=== PATIENT | female | born 1935 | race Caucasian/White ===

== ENCOUNTER 2018-02-04 08:35 | Inpatient (IN) | payer MEDICARE ==
[~2018-02-04] VITALS: Ht 152.4 cm; Wt 56.0 kg
[2018-02-04] VITALS (18 sets, daily range): BP systolic 140–196; BP diastolic 53–88; PULSE 64–150; RESP 15–20; TEMP 97–99.1; O2SAT 94–98
[2018-02-04] MEDS ORDERED: BERB1TAB PO (09:04)
[2018-02-04] MEDS ORDERED: [UNRECOGNIZED DRUG - OTHER] (09:04)
[2018-02-04] MEDS ORDERED: OMEGCAP PO (09:04)
[2018-02-04] MEDS ORDERED: ACETAMINOPHEN 500 MG CPLT PO ONE (09:15)
[2018-02-04] MEDS ORDERED: METOPROLOL TARTRATE 5 MG/5 ML VIAL IV PUSH ONE ×2 (09:15→11:15)
[2018-02-04 09:24] LABS: AUTOMATED NEUTROPHIL # 8.5 TH/MM3 (1.8-7.7); BASOPHIL % 0.5 % (0.0-2.0); EOSINOPHIL % 0.1 % (0.0-4.0); HEMATOCRIT 44.6 % (35.0-46.0); HEMOGLOBIN 14.9 GM/DL (11.6-15.3); LYMPH % 8.4 % (9.0-44.0); LYMPHOCYTE # 0.9 TH/MM3 (1.0-4.8); MEAN CELL VOLUME 89.9 FL (80.0-100.0); MEAN CORPUSCULAR HGB CONC 33.3 % (32.0-36.0); MONO % 7.6 % (0.0-8.0); MONOCYTE # 0.8 TH/MM3 (0-0.9); NEUT % 83.4 % (16.0-70.0); PLATELET COUNT 233 TH/MM3 (150-450); RED BLOOD COUNT 4.96 MIL/MM3 (4.00-5.30); RED CELL DISTRIBUTION WIDTH 13.2 % (11.6-17.2); WHITE BLOOD COUNT 10.2 TH/MM3 (4.0-11.0)
--- NOTE | 2018-02-04 09:50 | PD ---
HPI Chief Complaint: Fall Time Seen by Provider: 08:53 Travel History International Travel<30 days: No Contact w/Intl Traveler<30days: No Traveled to known affect area: No History of Present Illness HPI This is an 83-year-old female who presents to the emergency department having had a slip and fall on a wet floor reporting left hip and left low back pain, constant, moderate severity, worse with walking, improved with rest. She did not hit her head at that time. She denies any chest pain or trouble breathing and the reason she came is that the pain was keeping her up last night. She denies any numbness or weakness and denies any loss of bowels or bladder. PFSH Past Medical History Diabetes: Yes (type 2) Patient Takes Glucophage: No Past Surgical History Hysterectomy: Yes Mastectomy: Yes (left, and lumpectomy) Social History Alcohol Use: No Tobacco Use: No Substance Use: No Allergies-Medications (Allergen,Severity, Reaction): Coded Allergies: No Known Allergies (Unverified , 02/04/18) Reported Meds & Prescriptions Reported Meds & Active Scripts Active Reported D3 Super Strength (Cholecalciferol) 2,000 Unit Cap 2,000 Units PO DAILY [place]-3 Fish Oil/Vitamin (Fish Oil-Cholecalciferol) 1,000-1,000 Mg Cap 1 Cap PO DAILY Ostera (Berberine-Reduced Iso Alpha AC) 1 Tab 1 Tab PO DAILY Review of Systems Except as stated in HPI: all other systems reviewed are Neg Physical Exam Narrative GENERAL:Well appearing, no acute distress SKIN: Focused skin assessment warm and dry. HEAD: Atraumatic. Normocephalic. EYES: Pupils equal and round. No injection or drainage. ENT: Moist mucous membranes NECK: Trachea midline. CARDIOVASCULAR: Regular rate and rhythm. No murmur appreciated. RESPIRATORY: Clear to auscultation. Breath sounds equal bilaterally. GASTROINTESTINAL: Abdomen soft, non-tender, nondistended. MUSCULOSKELETAL: Tender to palpation over the lower lumbar spine, pain with flexion of the left hip NEUROLOGICAL: Awake and alert. No obvious cranial nerve deficits. 5 out of 5 strength in the bilateral lower extremities. PSYCHIATRIC: Appropriate mood and affect; insight and judgment normal. Data Data Last Documented VS Vital Signs Date Time Temp Pulse Resp B/P (MAP) Pulse Ox O2 Delivery O2 Flow Rate FiO2 02/04/18 12:00 72 16 196/81 (119) 98 Nasal Cannula 2.00 02/04/18 08:40 99.1 Orders Orders Complete Blood Count With Diff (02/04/18 09:05) Comprehensive Metabolic Panel (02/04/18 09:05) ^ Insert Iv (02/04/18 09:05) Electrocardiogram (02/04/18 ) Chest, Single Ap (02/04/18 ) Hip, Uni(Ap&Lat) W Ap Pelvis (02/04/18 ) Spine, Lumbar - Ltd (Ap & Lat) (02/04/18 ) Acetaminophen (Tylenol) (02/04/18 09:15) Metoprolol Tartrate Inj (Lopressor Inj) (02/04/18 09:15) Lactic Acid (02/04/18 10:10) Beta Hydroxybutyrate (Acetone) (02/04/18 10:10) Arterial Blood Gas (Abg) (02/04/18 ) Metoprolol Tartrate Inj (Lopressor Inj) (02/04/18 11:15) Sodium Chlorid 0.9% 500 Ml Inj (Ns 500 M (02/04/18 11:15) Insulin Human Regular Inj (Novolin R Inj (02/04/18 11:15) Metoprolol Tartrate (Lopressor) (02/04/18 12:00) Admit Order (Ed Use Only) (02/04/18 12:06) Labs Laboratory Tests Test 02/04/18 09:00 02/04/18 10:20 02/04/18 10:25 White Blood Count 10.2 TH/MM3 Red Blood Count 4.96 MIL/MM3 Hemoglobin 14.9 GM/DL Hematocrit 44.6 % Mean Corpuscular Volume 89.9 FL Mean Corpuscular Hemoglobin 30.0 PG Mean Corpuscular Hemoglobin Concent 33.3 % Red Cell Distribution Width 13.2 % Platelet Count 233 TH/MM3 Mean Platelet Volume 9.0 FL Neutrophils (%) (Auto) 83.4 % Lymphocytes (%) (Auto) 8.4 % Monocytes (%) (Auto) 7.6 % Eosinophils (%) (Auto) 0.1 % Basophils (%) (Auto) 0.5 % Neutrophils # (Auto) 8.5 TH/MM3 Lymphocytes # (Auto) 0.9 TH/MM3 Monocytes # (Auto) 0.8 TH/MM3 Eosinophils # (Auto) 0.0 TH/MM3 Basophils # (Auto) 0.0 TH/MM3 CBC Comment DIFF FINAL Differential Comment Blood Urea Nitrogen 24 MG/DL Creatinine 1.36 MG/DL Random Glucose 607 MG/DL Total Protein 8.6 GM/DL Albumin 3.9 GM/DL Calcium Level 9.3 MG/DL Alkaline Phosphatase 89 U/L Aspartate Amino Transf (AST/SGOT) 20 U/L Alanine Aminotransferase (ALT/SGPT) 21 U/L Total Bilirubin 1.1 MG/DL Sodium Level 131 MEQ/L Potassium Level 4.3 MEQ/L Chloride Level 93 MEQ/L Carbon Dioxide Level 19.8 MEQ/L Anion Gap 18 MEQ/L Estimat Glomerular Filtration Rate 37 ML/MIN Blood Gas Puncture Site RT RADIAL Blood Gas Patient Temperature 98.6 Blood Gas HCO3 23 mmol/L Blood Gas Base Excess -0.3 mmol/L Blood Gas Oxygen Saturation 95 % Arterial Blood pH 7.43 Arterial Blood Partial Pressure CO2 36 mmHg Arterial Blood Partial Pressure O2 89 mmHG Arterial Blood Oxygen Content 19.5 Vol % Arterial Blood Carboxyhemoglobin 1.2 % Arterial Blood Methemoglobin 0.6 % Blood Gas Hemoglobin 14.6 G/DL Oxygen Delivery Device NASAL CANNULA Blood Gas Liter Flow 2 L/M Lactic Acid Level 1.9 mmol/L B-Hydroxybutyrate 0.98 MMOL/L MDM Medical Decision Making Medical Screen Exam Complete: Yes Emergency Medical Condition: Yes Interpretation(s) Afebrile, tachycardic, hypertensive No leukocytosis Radiology renal insufficiency Hyperglycemia Lactic acid is 1.9 PH is 7.43 Beta hydroxybutyrate is mildly elevated Last 24 hours Impressions Lumbar Spine X-Ray 02/04/18 0000 Signed Impressions: Service Date/Time: January 10:07 - CONCLUSION: 1. Compression fracture to the superior plate of L1 appears chronic. 2. Otherwise, vertebral body heights are maintained. Multilevel degenerative disc disease with marginal spurring most prominent at L4-5. Minimal grade 1 anterolisthesis of L4 on 5. Jameel Campbell MD Hip and Pelvis X-Ray 02/04/18 0000 Signed Impressions: Service Date/Time: January 10:08 - CONCLUSION: No fracture. Jameel Campbell MD Chest X-Ray 02/04/18 0000 Signed Impressions: Service Date/Time: January 10:12 - CONCLUSION: Mild left apical capping. Otherwise, no acute cardiopulmonary process. Jameel Campbell MD Differential Diagnosis Compression fracture, pelvic fracture, hip sprain, contusion, herniated disc Narrative Course This is an 83-year-old female who presents to the emergency department having had a fall reporting back pain and left-sided hip pain for 3 days. She was placed on a monitor on arrival and an IV was established. She was incidentally found to be in atrial fibrillation with rapid ventricular response. She denies any chest pain or shortness of breath and has no history of atrial fibrillation. Labs were obtained which demonstrate hyperglycemia and an anion gap with a low bicarb. ABG was reassuring with a normal pH. Beta hydroxybutyrate is mildly elevated and lactic acid is normal. Patient was given 5 units of IV insulin and gentle IV hydration. She was given IV metoprolol for her atrial fibrillation. X-ray demonstrates a compression fracture which given the clinical setting I suspect is acute. Patient will be admitted for pain control and management of her comorbid conditions. Critical Care Narrative Aggregate critical care time was 40 minutes. Time to perform other separately billable procedures was not included in the critical care time. My time did not include minutes spent treating any other patients simultaneously or on activities that did not directly contribute to the patient's treatment. The services I provided to this patient were to treat and/or prevent clinically significant deterioration that could result in: Disability, I provided critical care services requiring my management, as noted below: Chart data review, documentation time, medication orders and management, vital sign assessments/reviewing monitor data, ordering and reviewing lab tests, ordering and interpreting/reviewing x-rays and diagnostic studies, care of the patient and discussion of the patient with the admitting physicians. Physician Communication Physician Communication Discussed with Dr. Ochoa Diagnosis Primary Impression: Compression fracture Additional Impressions: Atrial fibrillation with rapid ventricular response Hyperglycemia Admitting Information Admitting Physician Requests: Admit Tabatha Rodríguez MD February 04, 2018 09:50
[2018-02-04 09:52] LABS: ALBUMIN 3.9 GM/DL (3.4-5.0); ALKALINE PHOSPHATASE 89 U/L (45-117); ALT (GPT) 21 U/L (10-53); AST (GOT) 20 U/L (15-37); BICARBONATE 19.8 MEQ/L (21.0-32.0); BLOOD UREA NITROGEN 24 MG/DL (7-18); CALCIUM 9.3 MG/DL (8.5-10.1); CHLORIDE 93 MEQ/L (98-107); CREATININE 1.36 MG/DL (0.50-1.00); GLOMERULAR FILTRATION RATE 37 ML/MIN (>89); SODIUM (NA) 131 MEQ/L (136-145); TOTAL BILIRUBIN ADULT 1.1 MG/DL (0.2-1.0); TOTAL PROTEIN 8.6 GM/DL (6.4-8.2)
[2018-02-04 09:58] LABS: GLUCOSE,RANDOM 607 MG/DL (74-106)
--- NOTE | 2018-02-04 10:40 | RADRPT ---
EXAM DATE/TIME: 02/04/2018 10:07 [facility] COMPARISON: No previous studies available for comparison. INDICATIONS : Left lower back pain. Post Fall MEDICAL HISTORY : None. SURGICAL HISTORY : None. ENCOUNTER: Initial ACUITY: 4 - 6 days PAIN SCORE: 8/10 LOCATION: Left Lspine FINDINGS: Two view examination was performed. There are five non-rib bearing vertebral bodies. Multilevel dege nerative disc disease with some marginal spurring most prominent at L4-5. Minimal grade 1 anterolisth esis of L4 on 5. Compression fracture of the superior endplate of L1 appears chronic. Vertebral body heights are otherwise maintained. Dense atherosclerotic calcification of the regional vasculature. CONCLUSION: 1. Compression fracture to the superior plate of L1 appears chronic. 2. Otherwise, vertebral body heights are maintained. Multilevel degenerative disc disease with margin al spurring most prominent at L4-5. Minimal grade 1 anterolisthesis of L4 on 5. Jameel Campbell MD on February 04, 2018 at 10:29 Board Certified Radiologist. This report was verified electronically.
--- NOTE | 2018-02-04 10:41 | RADRPT ---
EXAM DATE/TIME: 02/04/2018 10:08 [facility] COMPARISON: No previous studies available for comparison. INDICATIONS : Left hip pain, post fall MEDICAL HISTORY : None. SURGICAL HISTORY : None. ENCOUNTER: Initial ACUITY: 4 - 6 days PAIN SCORE: 7/10 LOCATION: Left Hip FINDINGS: Examination of the left hip was performed with AP Pelvis. The primary and secondary trabecular patte rn of the femoral neck is intact. The hip joint is of normal width without significant sclerosis or bony hypertrophy. The acetabulum is grossly intact. CONCLUSION: No fracture. Jameel Campbell MD on February 04, 2018 at 10:39 Board Certified Radiologist. This report was verified electronically.
--- NOTE | 2018-02-04 10:43 | RADRPT ---
EXAM DATE/TIME: 02/04/2018 10:12 [facility] COMPARISON: No previous studies available for comparison. INDICATIONS : Fall, patient complains of left sided pain MEDICAL HISTORY : None. SURGICAL HISTORY : None. ENCOUNTER: Initial ACUITY: 4 - 6 days PAIN SCORE: 8/10 LOCATION: Left chest FINDINGS: A single view of the chest demonstrates the lungs to be symmetrically aerated without evidence of mas s, infiltrate or effusion. Minimal apical capping on the left. Atherosclerotic calcification of the aortic arch. The cardiomediastinal contours are unremarkable. Osseous structures are intact. Some lo ss of the acromiohumeral interval on the right may represent chronic rotator cuff injury. CONCLUSION: Mild left apical capping. Otherwise, no acute cardiopulmonary process. Jameel Campbell MD on February 04, 2018 at 10:40 Board Certified Radiologist. This report was verified electronically.
[2018-02-04] MEDS ORDERED: INSULIN HUMAN REGULAR 1,000 UNITS/10 ML VIAL IV PUSH ONE (11:15)
[2018-02-04] MEDS ORDERED: SODIUM CHLORID 0.9% 500 ML INJ 500 ML IV ONE (11:15)
[2018-02-04] MEDS ORDERED: METOPROLOL TARTRATE 50 MG TAB PO ONE (12:00)
[2018-02-04] MEDS ORDERED: ACETAMINOPHEN 325 MG TAB PO PRN (13:15)
[2018-02-04] MEDS ORDERED: ONDANSETRON ODT 4 MG TAB PO PRN (13:15)
--- NOTE | 2018-02-04 14:27 | PD.PN.STU ---
Subjective Remarks PCP - Dr. Jolly Ms. Suzanne Villagomez is a pleasant 83yo female, with newly discovered A. Fib. , presents to ER for Left hip and back pain after a fall 4 days ago. She reports that she slipped on a wet spot while doing house work. Denies feeling dizzy, lightheaded, or palpitations before the fall. She fell onto her left side but did not hit her head or lose consciousness. She was unable to get up so her helped her. She tried a variety of "natural remedies" for the pain without relief. The pain occurs in her left hip and radiates across her lower back. The pain is exacerbated by lying on either of her sides or when she tries to walk. Pain improves with rest. She has a HX DM but does not take prescribed medications for it. She has a hx of peripheral neuropathy. She is independent with all of her activites of daily living. HEENT - DENIES room spinning, ear ringing, vision changes CV - DENIES palpitations, syncope, chest pain, sweating, leg swelling PULM - DENIES SOB, wheezing NEURO - DENIES slurred speech, facial drooping, muscle weakness PMH DM Thyroid disease - not sure if hyper/hypo Hx Breast CA 1989 PSH Left breast mastectomy 1989 Complete hysterectomy 1977 "tumor but not cancer" SH - denies ETOH, tobacco use, or illicit drugs. Lives with . 3 children who live in other states. Allergies -NKDA FH noncontributory Objective Vitals Vital Signs Date Time Temp Pulse Resp B/P (MAP) Pulse Ox O2 Delivery O2 Flow Rate FiO2 02/04/18 13:00 74 16 181/71 (107) 97 Nasal Cannula 2.00 02/04/18 12:00 72 16 196/81 (119) 98 Nasal Cannula 2.00 02/04/18 11:24 120 16 146/86 (106) 97 Nasal Cannula 2.00 02/04/18 09:44 130 96 Room Air 02/04/18 08:56 150 16 140/88 (105) 96 Nasal Cannula 2.00 02/04/18 08:51 161 17 93 Room Air 02/04/18 08:40 99.1 142 20 147/68 (94) 94 Result Diagram: 02/04/18 0900 02/04/18 0900 Other Results Laboratory Tests Test 02/04/18 09:00 02/04/18 10:20 02/04/18 10:25 White Blood Count 10.2 TH/MM3 Red Blood Count 4.96 MIL/MM3 Hemoglobin 14.9 GM/DL Hematocrit 44.6 % Mean Corpuscular Volume 89.9 FL Mean Corpuscular Hemoglobin 30.0 PG Mean Corpuscular Hemoglobin Concent 33.3 % Red Cell Distribution Width 13.2 % Platelet Count 233 TH/MM3 Mean Platelet Volume 9.0 FL Neutrophils (%) (Auto) 83.4 % Lymphocytes (%) (Auto) 8.4 % Monocytes (%) (Auto) 7.6 % Eosinophils (%) (Auto) 0.1 % Basophils (%) (Auto) 0.5 % Neutrophils # (Auto) 8.5 TH/MM3 Lymphocytes # (Auto) 0.9 TH/MM3 Monocytes # (Auto) 0.8 TH/MM3 Eosinophils # (Auto) 0.0 TH/MM3 Basophils # (Auto) 0.0 TH/MM3 CBC Comment DIFF FINAL Differential Comment Blood Urea Nitrogen 24 MG/DL Creatinine 1.36 MG/DL Random Glucose 607 MG/DL Total Protein 8.6 GM/DL Albumin 3.9 GM/DL Calcium Level 9.3 MG/DL Alkaline Phosphatase 89 U/L Aspartate Amino Transf (AST/SGOT) 20 U/L Alanine Aminotransferase (ALT/SGPT) 21 U/L Total Bilirubin 1.1 MG/DL Sodium Level 131 MEQ/L Potassium Level 4.3 MEQ/L Chloride Level 93 MEQ/L Carbon Dioxide Level 19.8 MEQ/L Anion Gap 18 MEQ/L Estimat Glomerular Filtration Rate 37 ML/MIN Blood Gas Puncture Site RT RADIAL Blood Gas Patient Temperature 98.6 Blood Gas HCO3 23 mmol/L Blood Gas Base Excess -0.3 mmol/L Blood Gas Oxygen Saturation 95 % Arterial Blood pH 7.43 Arterial Blood Partial Pressure CO2 36 mmHg Arterial Blood Partial Pressure O2 89 mmHG Arterial Blood Oxygen Content 19.5 Vol % Arterial Blood Carboxyhemoglobin 1.2 % Arterial Blood Methemoglobin 0.6 % Blood Gas Hemoglobin 14.6 G/DL Oxygen Delivery Device NASAL CANNULA Blood Gas Liter Flow 2 L/M Lactic Acid Level 1.9 mmol/L B-Hydroxybutyrate 0.98 MMOL/L Imaging Last Impressions Lumbar Spine X-Ray 02/04/18 0000 Signed Impressions: Service Date/Time: January 10:07 - CONCLUSION: 1. Compression fracture to the superior plate of L1 appears chronic. 2. Otherwise, vertebral body heights are maintained. Multilevel degenerative disc disease with marginal spurring most prominent at L4-5. Minimal grade 1 anterolisthesis of L4 on 5. Jameel Campbell MD Hip and Pelvis X-Ray 02/04/18 0000 Signed Impressions: Service Date/Time: January 10:08 - CONCLUSION: No fracture. Jameel Campbell MD Chest X-Ray 02/04/18 0000 Signed Impressions: Service Date/Time: January 10:12 - CONCLUSION: Mild left apical capping. Otherwise, no acute cardiopulmonary process. Jameel Campbell MD Objective Remarks Well developed, well appearing thin female in NAD, appears stated age Skin - intact, no signs of lesions or infection. No bruising. HEENT - eye movements intact, pupils equal and reactive to light. No erythema throat. Torus palatinus. Good dentition CV - Regular rate and rhythm. No murmurs, rubs or gallops. No JVD. No lower extremity edema. Pulm - clear equal breath sounds. No wheezing ABD - no pain with palpation MSK - No swelling or bruising of left hip area. Some pain with palpation. Patient able to flex hip while lying in bed. Hip abduction +adduction 5/5 strength. plantar and dorsiflexion 5/5.Upper extremity muscle strength 5/5. Neuro - No focal deficits. CN intact. No facial drooping or slurred speech. Sensation intact bilateral feel. Psych - patient oriented x3. Cooperative. Medications and IVs Current Medications Medications (Trade) Dose Ordered Sig/Abril Route PRN Reason Start Time Stop Time Status Last Admin Dose Admin Insulin Aspart (NovoLOG SUPPLEMENTAL SCALE) 1 ACHS SLIDING SCALE SQ 02/04/18 17:00 Acetaminophen (Tylenol) 650 mg Q4H PRN PO fever or pain 02/04/18 13:15 Ondansetron HCl (Zofran Odt) 4 mg Q6H PRN PO nausea 02/04/18 13:15 A/P Assessment and Plan Hip Pain New Onset A fib DM - uncontrolled Admit MRI Hip + spine Diltiazem or metroprolol for rate control. Telemetry Insulin + fluids to bring down glucose. BMP in the morning + A1C Pain meds PRN DVT prophylaxis Heart healthy diet Stop O2? [place] February 04, 2018 14:27
--- NOTE | 2018-02-04 14:27 | HHI.HP ---
HPI Service CP Hospitalists Primary Care Physician Shane Jolly MD Admission Diagnosis atrial fibrillation with rvr, back pain hyperglycemia Chief Complaint: back pain Travel History International Travel<30 Days: No Contact w/Intl Traveler <30 Da: No Traveled to Known Affected Are: No History of Present Illness Pt is 83 yo with untreated htn,dm,hypothyroidism,and breast ca who presents with peristent left flank/back pain after slip and fall 4 days ago. She is having trouble transitioning in/out of bed and ambulating. On arrival she is found to have bg over 600 and afib/rvr. no hx afib but she has resisted treatment of any of her medical conditions for many yrs. ED gave iv cardizem and metoprolol. Lumbar xray suggested old compression deformities lumbar spine. Review of Systems Other low back pain/flank pain after fall Past Family Social History Past Medical History untreated dm2. hgba1c 10.7 untreated htn hypothyroidism breast ca s/p mod rad mastectomy/chemo vitamin d def iron def anemia. colon polyps raegan Reported Medications D3 Super Strength (Cholecalciferol) 2,000 Unit Cap 2,000 Units PO DAILY [place]-3 Fish Oil/Vitamin (Fish Oil-Cholecalciferol) 1,000-1,000 Mg Cap 1 Cap PO DAILY Ostera (Berberine-Reduced Iso Alpha AC) 1 Tab 1 Tab PO DAILY Allergies: Coded Allergies: No Known Allergies (Unverified , 02/04/18) Family History nc Social History no etoh/tob Physical Exam Vital Signs heart reg lung cta abd s/nt ext no edema unable to get much tenderness to palpation over left flank/spine Vital Signs Date Time Temp Pulse Resp B/P (MAP) Pulse Ox O2 Delivery O2 Flow Rate FiO2 02/04/18 14:00 72 16 177/74 (108) 97 Nasal Cannula 2.00 02/04/18 13:00 74 16 181/71 (107) 97 Nasal Cannula 2.00 02/04/18 12:00 72 16 196/81 (119) 98 Nasal Cannula 2.00 02/04/18 11:24 120 16 146/86 (106) 97 Nasal Cannula 2.00 02/04/18 09:44 130 96 Room Air 02/04/18 08:56 150 16 140/88 (105) 96 Nasal Cannula 2.00 02/04/18 08:51 161 17 93 Room Air 02/04/18 08:40 99.1 142 20 147/68 (94) 94 Laboratory Laboratory Tests Test 02/04/18 09:00 02/04/18 10:20 02/04/18 10:25 White Blood Count 10.2 Red Blood Count 4.96 Hemoglobin 14.9 Hematocrit 44.6 Mean Corpuscular Volume 89.9 Mean Corpuscular Hemoglobin 30.0 Mean Corpuscular Hemoglobin Concent 33.3 Red Cell Distribution Width 13.2 Platelet Count 233 Mean Platelet Volume 9.0 Neutrophils (%) (Auto) 83.4 Lymphocytes (%) (Auto) 8.4 Monocytes (%) (Auto) 7.6 Eosinophils (%) (Auto) 0.1 Basophils (%) (Auto) 0.5 Neutrophils # (Auto) 8.5 Lymphocytes # (Auto) 0.9 Monocytes # (Auto) 0.8 Eosinophils # (Auto) 0.0 Basophils # (Auto) 0.0 CBC Comment DIFF FINAL Differential Comment Blood Urea Nitrogen 24 Creatinine 1.36 Random Glucose 607 Total Protein 8.6 Albumin 3.9 Calcium Level 9.3 Alkaline Phosphatase 89 Aspartate Amino Transf (AST/SGOT) 20 Alanine Aminotransferase (ALT/SGPT) 21 Total Bilirubin 1.1 Sodium Level 131 Potassium Level 4.3 Chloride Level 93 Carbon Dioxide Level 19.8 Anion Gap 18 Estimat Glomerular Filtration Rate 37 Blood Gas Puncture Site RT RADIAL Blood Gas Patient Temperature 98.6 Blood Gas HCO3 23 Blood Gas Base Excess -0.3 Blood Gas Oxygen Saturation 95 Arterial Blood pH 7.43 Arterial Blood Partial Pressure CO2 36 Arterial Blood Partial Pressure O2 89 Arterial Blood Oxygen Content 19.5 Arterial Blood Carboxyhemoglobin 1.2 Arterial Blood Methemoglobin 0.6 Blood Gas Hemoglobin 14.6 Oxygen Delivery Device NASAL CANNULA Blood Gas Liter Flow 2 Lactic Acid Level 1.9 B-Hydroxybutyrate 0.98 Result Diagram: 02/04/18 0900 02/04/18 0900 Caprini VTE Risk Assessment Caprini VTE Risk Assessment: Mod/High Risk (score >= 2) Caprini Risk Assessment Model Point Value = 1 Point Value = 2 Point Value = 3 Point Value = 5 Age 41-60 Minor surgery BMI > 25 kg/m2 Swollen legs Varicose veins or History of unexplained or recurrent spontaneous Oral contraceptives or hormone replacement Sepsis (< 1 month) Serious lung disease, including pneumonia (< 1 month) Abnormal pulmonary function Acute myocardial infarction Congestive heart failure (< 1 month) History of inflammatory bowel disease Medical patient at bed rest Age 61-74 Arthroscopic surgery Major open surgery (> 45 min) Laparoscopic surgery (> 45 min) Malignancy Confined to bed (> 72 hours) Immobilizing plaster cast Central venous access Age >= 75 History of VTE Family history of VTE Factor V Leiden Prothrombin [id number] Lupus anticoagulant Anticardiolipin antibodies Elevated serum homocysteine Heparin-induced thrombocytopenia Other congenital or acquired thrombophilia Stroke (< 1 month) Elective arthroplasty Hip, pelvis, or leg fracture Acute spinal cord injury (< 1 month) Prophylaxis Regimen Total Risk Factor Score Risk Level Prophylaxis Regimen 0-1 Low Early ambulation 2 Moderate Order ONE of the following: *Sequential Compression Device (SCD) *Heparin 5000 units SQ BID 3-4 Higher Order ONE of the following medications: *Heparin 5000 units SQ TID *Enoxaparin/Lovenox 40 mg SQ daily (WT < 150 kg, CrCl > 30 mL/min) *Enoxaparin/Lovenox 30 mg SQ daily (WT < 150 kg, CrCl > 10-29 mL/min) *Enoxaparin/Lovenox 30 mg SQ BID (WT < 150 kg, CrCl > 30 mL/min) AND/OR *Sequential Compression Device (SCD) 5 or more Highest Order ONE of the following medications: *Heparin 5000 units SQ TID (Preferred with Epidurals) *Enoxaparin/Lovenox 40 mg SQ daily (WT < 150 kg, CrCl > 30 mL/min) *Enoxaparin/Lovenox 30 mg SQ daily (WT < 150 kg, CrCl > 10-29 mL/min) *Enoxaparin/Lovenox 30 mg SQ BID (WT < 150 kg, CrCl > 30 mL/min) AND *Sequential Compression Device (SCD) Assessment and Plan Problem List: (1) Acute left-sided low back pain ICD Codes: M54.5 - Low back pain Status: Acute Plan: 1. acute left flank/LBP after fall could be soft tissue injury. r/o lumbar fx 2. new onset afib/rvr..converted to nsr 3. dm2. poor control. refuses rx. hgba1c 10.7 hyperglycemia on presentation over 600 4. emani/hyponatremia/dehydration felt related to severe hyperglycemia. increased AG probably very mild dka. 5. abnormal ekg...new afib with lat st depressions pt denies cp but likely has underlying cad 6. hx breast ca pt with long hx of refusing medication for her medical conditions. gentle ns, recheck bmp cont telemetry. pt agrees initiating low dose bb. titrate as needed add asa will monitor bg with ssi. consider starting oha if pt will agree CT L spine. non narcotic pain meds. Pt eval If stable try to d/c tomorrow (2) Dehydration ICD Codes: E86.0 - Dehydration Status: Acute (3) Hyponatremia ICD Codes: E87.1 - Hypo-osmolality and hyponatremia Status: Acute (4) EMANI (acute kidney injury) ICD Codes: N17.9 - Acute kidney failure, unspecified Status: Acute (5) Diabetes ICD Codes: E11.9 - Type 2 diabetes mellitus without complications Status: Acute (6) Fall ICD Codes: W19.XXXA - Unspecified fall, initial encounter Status: Acute Physician Certification Order for Inpatient Services The services are ordered in accordance with Medicare regulations or non- Medicare payer requirements, as applicable. In the case of services not specified as inpatient-only, they are appropriately provided as inpatient services in accordance with the 2-midnight benchmark. days is the estimated time the patient will need to remain in the hospital, assuming treatment plan goals are met and no additional complications. Reagan Ochoa MD February 04, 2018 14:27
[2018-02-04] MEDS ORDERED: D200CAP PO (14:45)
[2018-02-04] MEDS ORDERED: ACETAMINOPHEN 1000 MG/100 ML 100 ML IV ONE (15:45)
[2018-02-04] MEDS: SODIUM CHLOR 0.9% 1000 ML INJ 1,000 ML IV SCH (16:29)
[2018-02-04] MEDS: INSULIN ASPART SUPPLEMENTAL SCALE SQ SCH ×2 (17:00→22:58)
[2018-02-04] MEDS ORDERED: cloNIDine HCL 0.1 MG TAB PO PRN (19:00)
[2018-02-04] MEDS ORDERED: METOPROLOL TARTRATE 25 MG TAB PO SCH (21:00)
[2018-02-04] MEDS: ACETAMINOPHEN 1000 MG/100 ML 100 ML IV PRN (22:59)
--- NOTE | 2018-02-04 23:21 | RADRPT ---
EXAM DATE/TIME: 02/04/2018 22:20 [place] COMPARISON: SPINE LUMBAR LTD (AP & LAT), February 04, 2018, 10:07. INDICATIONS : Lower back pain RADIATION DOSE: 17.21 CTDIvol (mGy) MEDICAL HISTORY : Diabetes, breast cancer SURGICAL HISTORY : Hysterectomy. Mastectomy ENCOUNTER: Initial ACUITY: 1 day PAIN SCALE: 4/10 LOCATION: Bilateral Lumbar spine TECHNIQUE: Volumetric scanning of the lumbar spine was performed. Multiplanar reconstructions in the sagittal, coronal and oblique axial planes were performed. Using automated exposure control and adjustment of the mA and/or kV according to patient size, radiation dose was kept as low as reasonably achievable t o obtain optimal diagnostic quality images. DICOM format image data is available electronically for review and comparison. FINDINGS: VERTEBRAE: There is fracture at the superior aspect of L1 with collapse of the anterior and mid portions of the L1 vertebral body with loss of approximately 25% of the original height in these regions. There is mi nimal buckling of the posterior superior L1 cortex causing minimal impress on the anterior aspect of thecal sac. The remaining lumbar vertebral bodies are normal in height. There is sclerosis at the rig ht lateral L2-L3 level. Anterior marginal osteophytes are seen throughout being most prominent at the L4-L5 level. ALIGNMENT: No evidence of subluxation. T12-L1: Again there is a fracture deformity of the superior aspect of L1. There is minimal posterior buckling of the posterior superior cortex in the order of 2 mm causing a minimal impression on the anterior a spect of thecal sac. Significant stenosis is not seen. The disc space appears grossly intact. There i s a vacuum phenomenon seen at the anterior aspect of the disc. The thecal sac has a normal diameter. No evidence of disc bulge or protrusion. The neural foramina are patent bilaterally. L1-L2: The thecal sac has a normal diameter. No evidence of disc bulge or protrusion. The neural foramina are patent bilaterally. L2-L3: The disc demonstrates decreased height being asymmetric and worse on the right. There is a vacuum can not. There is mild disc bulging. The thecal sac has a normal diameter. The neural foramina are paten t bilaterally. L3-L4: There is mild diffuse disc bulge causing mild impression on the thecal sac. The thecal sac has a norm al diameter. The neural foramina are patent bilaterally. L4-L5: There is mild diffuse disc bulge causing mild impression on the thecal sac. The thecal sac has a norm al diameter. The neural foramina are patent bilaterally. There is mild facet hypertrophy. L5-S1: The thecal sac has a normal diameter. No evidence of disc bulge or protrusion. The neural foramina are patent bilaterally. There is mild to moderate facet hypertrophy. CONCLUSION: 1. Acute fracture deformity of the superior aspect of the L1 vertebral body. There is minimal posteri or buckling and displacement of the posterior superior cortex in the order of 2 mm causing a minimal impression on the anterior thecal sac. 2. Disc bulges at the L2-L3 through L4-L5 levels. Yonatan Madrid MD on February 04, 2018 at 23:11 Board Certified Radiologist. This report was verified electronically.
[2018-02-05] VITALS (18 sets, daily range): BP systolic 102–178; BP diastolic 52–72; PULSE 58–75; RESP 16–20; TEMP 97.4–98.5; O2SAT 92–99
[2018-02-05] MEDS: SODIUM CHLOR 0.9% 1000 ML INJ 1,000 ML IV SCH (05:05)
[2018-02-05 07:49] LABS: BICARBONATE 27.1 MEQ/L (21.0-32.0); CALCIUM 8.8 MG/DL (8.5-10.1); CREATININE 0.85 MG/DL (0.50-1.00); MAGNESIUM 2.4 MG/DL (1.5-2.5); PHOSPHORUS 2.7 MG/DL (2.5-4.9)
--- NOTE | 2018-02-05 08:07 | HHI.PR ---
Subjective Remarks ofirmev helps pain hasn't been oob doesn't want any nsg eval or surgical intervention on L1 fx Objective Vitals heart lung cta abd s/nt ext no edema Vital Signs Date Time Temp Pulse Resp B/P (MAP) Pulse Ox O2 Delivery O2 Flow Rate FiO2 02/05/18 06:00 58 02/05/18 05:00 58 02/05/18 04:00 63 02/05/18 04:00 60 02/05/18 04:00 64 16 142/62 (88) 93 02/05/18 03:00 60 02/05/18 02:00 62 02/05/18 01:00 64 02/05/18 00:00 62 02/05/18 00:00 64 02/05/18 00:00 16 02/04/18 23:00 68 02/04/18 22:00 64 02/04/18 21:15 69 02/04/18 21:15 98.9 67 18 155/53 (87) 94 02/04/18 21:00 68 02/04/18 20:00 68 02/04/18 19:00 74 02/04/18 18:35 85 02/04/18 18:15 145/72 (96) 02/04/18 17:16 18 02/04/18 17:00 71 02/04/18 16:08 97.0 74 15 173/71 (105) 94 02/04/18 16:02 70 16 157/85 (109) Nasal Cannula 2.00 02/04/18 14:00 72 16 177/74 (108) 97 Nasal Cannula 2.00 02/04/18 13:00 74 16 181/71 (107) 97 Nasal Cannula 2.00 02/04/18 12:00 72 16 196/81 (119) 98 Nasal Cannula 2.00 02/04/18 11:24 120 16 146/86 (106) 97 Nasal Cannula 2.00 02/04/18 09:44 130 96 Room Air 02/04/18 08:56 150 16 140/88 (105) 96 Nasal Cannula 2.00 02/04/18 08:51 161 17 93 Room Air 02/04/18 08:40 99.1 142 20 147/68 (94) 94 Result Diagram: 02/04/18 0900 02/05/18 0553 A/P Problem List: (1) Acute left-sided low back pain ICD Codes: M54.5 - Low back pain Status: Acute Plan: 1. acute left flank/LBP after fall acute L1 fracture. no spinal stenosis 2. new onset afib/rvr..converted to nsr 3. dm2. poor control. refused rx. hgba1c 10.7 hyperglycemia on presentation over 600 4. emani/hyponatremia/dehydration felt related to severe hyperglycemia. increased AG probably very mild dka. All improving. 5. abnormal ekg...new afib with lat st depressions pt denies cp but likely has underlying cad 6. hx breast ca pt with long hx of refusing medication for her medical conditions. stop ivf cont telemetry. pt agrees initiating low dose bb. lower dose to avoid bradycardia cont asa will monitor bg with ssi. will initiate oha slowly as pt is hesitant to try ..this can be further titrated in outpt setting. non narcotic pain meds. Pt eval today and tlso brace ordered. Pt is requesting no neurosurgical intervention or eval at this time unless conservative management with pain meds/PT/brace are ineffective. I have warned her that it's possible that the fx can progress in some situations. (2) Dehydration ICD Codes: E86.0 - Dehydration Status: Acute (3) Hyponatremia ICD Codes: E87.1 - Hypo-osmolality and hyponatremia Status: Acute (4) EMANI (acute kidney injury) ICD Codes: N17.9 - Acute kidney failure, unspecified Status: Acute (5) Diabetes ICD Codes: E11.9 - Type 2 diabetes mellitus without complications Status: Acute (6) Fall ICD Codes: W19.XXXA - Unspecified fall, initial encounter Status: Acute Reagan Ochoa MD February 05, 2018 08:06
[2018-02-05] MEDS ORDERED: PILL SPLITTER OTHER PRN (08:15)
[2018-02-05] MEDS: INSULIN ASPART SUPPLEMENTAL SCALE SQ SCH ×4 (08:18→21:00)
[2018-02-05] MEDS: ASPIRIN 325 MG TAB PO SCH (08:18)
[2018-02-05] MEDS: glipiZIDE 5 MG TAB PO SCH ×2 (08:22→18:10)
[2018-02-05] MEDS: METOPROLOL TARTRATE 25 MG TAB PO SCH ×2 (08:22→21:12)
[2018-02-05] MEDS: ACETAMINOPHEN 1000 MG/100 ML 100 ML IV PRN (09:09)
--- NOTE | 2018-02-05 09:15 | PD.PN.STU ---
Subjective Remarks Hospital Day 2 for L1 fracture after fall 5 days ago. Patient reports her pain is better today. She is only taking IV acetaminophen. She does not want surgery for her back. She slept well last night and did not experience any palpitations , heart racing, or episode of A. Fib. She is wearing a back brace. She needs help getting out of bed but is able to ambulate to the bathroom. Sensation remains intact in her legs and she has not had incontinence. Tolerating insulin. Blood sugar 247 this am. Objective Vitals Vital Signs Date Time Temp Pulse Resp B/P (MAP) Pulse Ox O2 Delivery O2 Flow Rate FiO2 02/05/18 06:00 58 02/05/18 05:00 58 02/05/18 04:00 63 02/05/18 04:00 60 02/05/18 04:00 64 16 142/62 (88) 93 02/05/18 03:00 60 02/05/18 02:00 62 02/05/18 01:00 64 02/05/18 00:00 62 02/05/18 00:00 64 02/05/18 00:00 16 02/04/18 23:00 68 02/04/18 22:00 64 02/04/18 21:15 69 02/04/18 21:15 98.9 67 18 155/53 (87) 94 02/04/18 21:00 68 02/04/18 20:00 68 02/04/18 19:00 74 02/04/18 18:35 85 02/04/18 18:15 145/72 (96) 02/04/18 17:16 18 02/04/18 17:00 71 02/04/18 16:08 97.0 74 15 173/71 (105) 94 02/04/18 16:02 70 16 157/85 (109) Nasal Cannula 2.00 02/04/18 14:00 72 16 177/74 (108) 97 Nasal Cannula 2.00 02/04/18 13:00 74 16 181/71 (107) 97 Nasal Cannula 2.00 02/04/18 12:00 72 16 196/81 (119) 98 Nasal Cannula 2.00 02/04/18 11:24 120 16 146/86 (106) 97 Nasal Cannula 2.00 02/04/18 09:44 130 96 Room Air I/O 02/04/18 02/04/18 02/04/18 02/05/18 02/05/18 02/05/18 07:00 15:00 23:00 07:00 15:00 23:00 Intake Total 240 ml 240 ml 240 ml Balance 240 ml 240 ml 240 ml Intake Oral 240 ml 240 ml IV Total 240 ml # Voids 2 2 Result Diagram: 02/04/18 0900 02/05/18 0553 Other Results Laboratory Tests Test 02/04/18 10:20 02/04/18 10:25 02/05/18 05:53 Blood Gas Puncture Site RT RADIAL Blood Gas Patient Temperature 98.6 Blood Gas HCO3 23 mmol/L Blood Gas Base Excess -0.3 mmol/L Blood Gas Oxygen Saturation 95 % Arterial Blood pH 7.43 Arterial Blood Partial Pressure CO2 36 mmHg Arterial Blood Partial Pressure O2 89 mmHG Arterial Blood Oxygen Content 19.5 Vol % Arterial Blood Carboxyhemoglobin 1.2 % Arterial Blood Methemoglobin 0.6 % Blood Gas Hemoglobin 14.6 G/DL Oxygen Delivery Device NASAL CANNULA Blood Gas Liter Flow 2 L/M Lactic Acid Level 1.9 mmol/L B-Hydroxybutyrate 0.98 MMOL/L Blood Urea Nitrogen 23 MG/DL Creatinine 0.85 MG/DL Random Glucose 202 MG/DL Calcium Level 8.8 MG/DL Phosphorus Level 2.7 MG/DL Magnesium Level 2.4 MG/DL Sodium Level 140 MEQ/L Potassium Level 3.9 MEQ/L Chloride Level 103 MEQ/L Carbon Dioxide Level 27.1 MEQ/L Anion Gap 10 MEQ/L Estimat Glomerular Filtration Rate 64 ML/MIN Imaging Last Impressions Lumbar Spine X-Ray 02/04/18 0000 Signed Impressions: Service Date/Time: January 10:07 - CONCLUSION: 1. Compression fracture to the superior plate of L1 appears chronic. 2. Otherwise, vertebral body heights are maintained. Multilevel degenerative disc disease with marginal spurring most prominent at L4-5. Minimal grade 1 anterolisthesis of L4 on 5. Jameel Campbell MD Lumbar Spine CT 02/04/18 0000 Signed Impressions: Service Date/Time: January 22:20 - CONCLUSION: 1. Acute fracture deformity of the superior aspect of the L1 vertebral body. There is minimal posterior buckling and displacement of the posterior superior cortex in the order of 2 mm causing a minimal impression on the anterior thecal sac. 2. Disc bulges at the L2-L3 through L4-L5 levels. Yonatan Madrid MD Hip and Pelvis X-Ray 02/04/18 0000 Signed Impressions: Service Date/Time: January 10:08 - CONCLUSION: No fracture. Jameel Campbell MD Chest X-Ray 02/04/18 0000 Signed Impressions: Service Date/Time: January 10:12 - CONCLUSION: Mild left apical capping. Otherwise, no acute cardiopulmonary process. Jameel Campbell MD Objective Remarks NAD, resting comfortably in back brace Heart regular rate and rhythm. No murmurs. No swelling of lower extremities Lung sounds equal. No wheezes or crackles. no use of accessory muscles No focal deficits on neuro exam. Sensation feet/legs intact. Medications and IVs Current Medications Medications (Trade) Dose Ordered Sig/Abril Route PRN Reason Start Time Stop Time Status Last Admin Dose Admin Insulin Aspart (NovoLOG SUPPLEMENTAL SCALE) 1 ACHS SLIDING SCALE SQ 02/04/18 17:00 02/05/18 08:18 Ondansetron HCl (Zofran Odt) 4 mg Q6H PRN PO nausea 02/04/18 13:15 Acetaminophen 100 ml @ 400 mls/hr Q6H PRN IV Pain 3-10 02/04/18 15:45 02/04/18 22:59 Clonidine (Catapres) 0.1 mg Q4H PRN PO SYSTOLIC BP GREATER THAN 170 02/04/18 19:00 02/05/18 08:21 Aspirin (Aspirin) 325 mg DAILY PO 02/05/18 09:00 02/05/18 08:18 Metoprolol Tartrate (Lopressor) 12.5 mg Q12HR PO 02/05/18 09:00 02/05/18 08:22 Glipizide (Glucotrol) 5 mg BID@08,17 PO 02/05/18 08:30 02/05/18 08:22 Miscellaneous (Pill Splitter) 1 ea UNSCH PRN OTHER SEE LABEL COMMENTS 02/05/18 08:15 A/P Assessment and Plan 1. L1 fracture 2. New onset A. Fib - converted 3. Acute Kidney Injury - possibly from dehydration, uncontrolled DM2 and HTN. 3. DM2 - uncontrolled 4. Hypertension -uncontrolled Transfer to Ortho floor Ortho Consult Continue metoprolol Clonidine when systolic > 170 Continue IV Tylenol for pain Add Glipizide PT Diabetic Diet Ewa Marie February 05, 2018 09:15
--- NOTE | 2018-02-05 11:46 | EKG ---
Date Performed: 02/04/2018 Time Performed: 08:55:37 PTAGE: 83 years EKG: ATRIAL FIBRILLATION WITH RAPID VENTRICULAR RESPONSE BORDERLINE LEFT AXIS DEVIATION VOLTAGE CRITERIA FOR LVH NONSPECIFIC ST & T-WAVE ABNORMALITY ABNORMAL ECG INTERPRETATION BASED ON A DEFAULT A GE OF 40 YEARS NO PREVIOUS TRACING DOCTOR: Venancio Lieberman Interpretating Date/Time 02/05/2018 11:43:54
[2018-02-06] VITALS: BP 160/70; PULSE 66; RESP 18; TEMP 97.4; O2SAT 99
[2018-02-06] MEDS: ACETAMINOPHEN 1000 MG/100 ML 100 ML IV PRN (01:38)
[2018-02-06 03:43] VITALS: PULSE 63
[2018-02-06 04:00] VITALS: BP 141/64; PULSE 64; RESP 16; TEMP 97.6; O2SAT 94
[2018-02-06 08:00] VITALS: BP 163/68; PULSE 72; PULSE 75; RESP 20; TEMP 97.9; O2SAT 97
[2018-02-06] MEDS: INSULIN ASPART SUPPLEMENTAL SCALE SQ SCH ×3 (08:00→16:22)
[2018-02-06] MEDS: ASPIRIN 325 MG TAB PO SCH (08:39)
[2018-02-06] MEDS: METOPROLOL TARTRATE 25 MG TAB PO SCH (08:39)
[2018-02-06] MEDS: glipiZIDE 5 MG TAB PO SCH ×2 (08:39→16:18)
--- NOTE | 2018-02-06 08:52 | HHI.PR ---
Subjective Remarks pt had brace on while trying to sleep..causing alot of pain. able to sit to edge of bed on her own. Objective Vitals heart reg lung cta abd s/nt ext no edema tlso brace. Vital Signs Date Time Temp Pulse Resp B/P (MAP) Pulse Ox O2 Delivery O2 Flow Rate FiO2 02/06/18 04:00 97.6 64 16 141/64 (89) 94 02/06/18 03:43 63 02/06/18 00:00 97.4 66 18 160/70 (100) 99 02/06/18 00:00 Room Air 02/05/18 23:45 62 02/05/18 20:00 98.3 70 18 136/61 (86) 95 02/05/18 20:00 Room Air 02/05/18 19:45 70 02/05/18 16:31 98.1 65 20 153/67 (95) 99 02/05/18 11:46 98.5 66 19 102/52 (69) 92 02/05/18 11:00 75 02/05/18 10:00 72 02/05/18 09:00 70 Result Diagram: 02/04/18 0900 02/05/18 0553 A/P Problem List: (1) Acute left-sided low back pain ICD Codes: M54.5 - Low back pain Status: Acute Plan: 1. acute left flank/LBP after fall acute L1 fracture. no spinal stenosis 2. new onset afib/rvr..converted to nsr 3. dm2. poor control. refused rx. hgba1c 10.7 hyperglycemia on presentation over 600 4. emani/hyponatremia/dehydration felt related to severe hyperglycemia. increased AG probably very mild dka. All improving. 5. abnormal ekg...new afib with lat st depressions pt denies cp but likely has underlying cad 6. hx breast ca pt with long hx of refusing medication for her medical conditions. stop ivf cont telemetry. pt agrees initiating low dose bb. lower dose to avoid bradycardia cont asa will monitor bg with ssi. will initiate oha slowly as pt is hesitant to try ..this can be further titrated in outpt setting. non narcotic pain meds. tlso brace Pt is requesting no neurosurgical intervention or eval at this time unless conservative management with pain meds/PT/brace are ineffective. I have warned her that it's possible that the fx can progress in some situations. will discuss with her family today.....will plan for d/c unless her family requesting nsg. ADDENDUM:Pt son here from [place]...he is now asking me to NSG evaluation before I discharge her. Will ask nsg for opinion regarding the L1 fx before d/c per family request. Of note pt does say her pain is getting better and improved ambulation. d/c if ok with nsg. (2) Dehydration ICD Codes: E86.0 - Dehydration Status: Acute (3) Hyponatremia ICD Codes: E87.1 - Hypo-osmolality and hyponatremia Status: Acute (4) EMANI (acute kidney injury) ICD Codes: N17.9 - Acute kidney failure, unspecified Status: Acute (5) Diabetes ICD Codes: E11.9 - Type 2 diabetes mellitus without complications Status: Acute (6) Fall ICD Codes: W19.XXXA - Unspecified fall, initial encounter Status: Acute Reagan Ochoa MD February 06, 2018 08:51
[2018-02-06 12:00] VITALS: BP 165/70; PULSE 70; PULSE 72; RESP 20; TEMP 97.5; O2SAT 96
[2018-02-06] MEDS ORDERED: TYLE325T PO (12:54)
[2018-02-06] MEDS ORDERED: GLIP5 PO (12:54)
[2018-02-06] MEDS ORDERED: METO25TA3 PO (12:54)
[2018-02-06] MEDS ORDERED: ASA325 PO (12:54)
--- NOTE | 2018-02-06 12:54 | HHI.DCPOC ---
Discharge Care Plan Diagnosis: (1) Compression fracture (2) Atrial fibrillation with rapid ventricular response (3) Diabetes (4) Dehydration (5) Hyponatremia (6) Fall (7) EMANI (acute kidney injury) Goals to Promote Your Health * To prevent worsening of your condition and complications * To maintain your health at the optimal level Directions to Meet Your Goals Take your medications as prescribed Follow your dietary instruction Follow activity as directed Keep your appointments as scheduled Take your immunizations and boosters as scheduled If your symptoms worsen call your PCP, if no PCP go to Urgent Care Center or Emergency Room Smoking is Dangerous to Your Health. Avoid second hand smoke Call the 24-hour hour crisis hotline for domestic abuse at Reagan Ochoa MD February 06, 2018 12:54
--- NOTE | 2018-02-06 13:17 | MB ---
cc: ,Blair Coles DATE: 02/06/2018 CHIEF COMPLAINT: Back pain. HISTORY OF PRESENT ILLNESS: This 83-year-old female patient with multiple medical problems, presented to the ER after a fall 4 days ago. She had progressive pain and had difficulty ambulating and getting out of bed. Because of this, she presented to the ER, where she underwent evaluation and a question of a L1 compression fracture was made and she was also found to have multiple medical problems which were untreated. Neurosurgery consult was placed because of the compression fracture. PAST MEDICAL HISTORY: Remarkable for untreated diabetes mellitus, untreated hypertension, hypothyroidism, status post breast cancer with mastectomy and chemotherapy, vitamin D deficiency, iron deficiency anemia, and colon polyps. MEDICATIONS: Includes: 1. D3. 2. [place] 3 fish oil. 3. Ostera. ALLERGIES: SHE HAS NO KNOWN ALLERGIES. FAMILY HISTORY: Not covered. SOCIAL HISTORY: Reveals she does not use alcohol or tobacco. PHYSICAL EXAMINATION: VITAL SIGNS: Blood pressure of 177/74, pulse of 72, respirations 16, pulse oximetry of 97, and temperature 99.1. GENERAL: Shows a well-developed, thin female in no acute distress. She is jovial. HEENT: Unremarkable. NECK: Supple with good carotid pulses bilaterally. CHEST: Symmetric. LUNGS: Clear. HEART: Shows regular rhythm with normal heart sounds. ABDOMEN: Soft and nontender. EXTREMITIES: Clear. MUSCULOSKELETAL: Examination of the back shows tenderness at the midline at about the level of L4-L5. IMAGING STUDIES: Review of a CT of the lumbar spine shows evidence of a compression fracture of L1. No instability noted. OVERALL IMPRESSION: L1 compression fracture. The patient reports a 70% improvement at the present time. She states that she is today ambulatory without much difficulty. She has worn a brace, which made her pain worse. RECOMMENDATIONS: At this time are to use the brace intermittently for comfort. She should have followup as an outpatient because of the L1 compression fracture. She should have a standing lumbar x-ray once she is ambulatory and doing well. No surgical intervention is necessary at the present time. Blair BHATIA/TORREY , 11:52 AM , 01:16 PM DRISS
--- NOTE | 2018-02-06 14:25 | EKG ---
Date Performed: 02/04/2018 Time Performed: 16:48:28 PTAGE: 83 years EKG: Sinus rhythm Possible septal infarct - age undetermined Abnormal ECG PREVIOUS TRACING : 02/04/2018 08.55 Compared to previous tracing, AFIB WITH RVR IS NO LONGER P RESENT DOCTOR: Wei Ghosh Interpretating Date/Time 02/06/2018 14:23:27
--- NOTE | 2018-02-06 15:05 | HHI.FF ---
Face to Face Verification Diagnosis: (1) Compression fracture (2) Atrial fibrillation with rapid ventricular response Physical Therapy Order: Evaluate and Treat, Improve ambulation Instructions: use tlso brace when out of bed. Home Health Nursing Order: Medical education Signs/symptoms of disease process Diabetic education Medication education-adverse effect Nursing assessment with vital signs I have seen patient Suzanne Villagomez on 02/06/18. My clinical findings support the need for the requested home health care services because: Ltd mobility - disease progression Med compliance is questionable High risk of falls I certify that my clinical findings support that this patient is homebound because: Unsteady gait/balance Reagan Ochoa MD February 06, 2018 15:05
[2018-02-06 16:00] VITALS: PULSE 72
== END 2018-02-06 17:23 | disposition home health service (06) | DRG 551 ==
LOC: NEPC 08:35 → NEDA 12:07 → HCIS 15:58 → N04A 02-05 15:24
PROVIDERS: ADMIT Hospitalist; ATTEND Hospitalist
DX: S32.018A Other fracture of first lumbar vertebra, initial encounter for closed fracture (principal); E11.10 Type 2 diabetes mellitus with ketoacidosis without coma; N17.9 Acute kidney failure, unspecified; I48.91 Unspecified atrial fibrillation; E86.0 Dehydration; E11.42 Type 2 diabetes mellitus with diabetic polyneuropathy; E87.1 Hypo-osmolality and hyponatremia; I10 Essential (primary) hypertension; E55.9 Vitamin D deficiency, unspecified; D50.9 Iron deficiency anemia, unspecified; E07.9 Disorder of thyroid, unspecified; M25.552 Pain in left hip; I25.10 Atherosclerotic heart disease of native coronary artery without angina pectoris; W01.0XXA Fall on same level from slipping, tripping and stumbling without subsequent striking against object, initial encounter; Y92.009 Unspecified place in unspecified non-institutional (private) residence as the place of occurrence of the external cause; Y93.01 Activity, walking, marching and hiking; Z85.3 Personal history of malignant neoplasm of breast; Z90.12 Acquired absence of left breast and nipple; Z91.14 Patient's other noncompliance with medication regimen; Z92.21 Personal history of antineoplastic chemotherapy
CPT/HCPCS: 36600; 71045; 72100; 72131; 73502; 80048; 80053; 82010; 82805; 82948; 83605; 83735; 84100; 85025; 93005; 96361; 96374; 96375; 96376; J0131; J1815; J7030; J7040; L0200; L0484